=== PATIENT | female | born 1990 | race Asian ===

== ENCOUNTER 2020-11-15 18:28 | Outpatient (CLI) | payer OTHER ==
[~2020-11-15] VITALS: Ht 157.5 cm; Wt 60.0 kg
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
[2020-11-15 19:00] VITALS: BP 106/61; PULSE 77; TEMP 98.4
[2020-11-15 20:00] VITALS: BP 101/64; PULSE 80
--- NOTE | 2020-11-15 20:00 | NUR ---
Dr. Stanley on unit, reviews FHR tracing.
[2020-11-15 20:30] VITALS: BP 102/62; PULSE 75
--- NOTE | 2020-11-15 20:30 | NUR ---
Irregular contractions per toco, patient denies feeling them. SVE closed/thick/high.
[2020-11-15] MEDS ORDERED: PRENATAL TABLET PO (20:40)
--- NOTE | 2020-11-15 20:50 | NUR ---
Discharge instructions reviewed with patient. Patient discharged home in stable condition with spouse.
== END 2020-11-15 20:50 | disposition home or self-care (01) ==
LOC: LDRO 18:28 → LDR 18:50 → LDRO 20:50
DX: O9A.213 Injury, poisoning and certain other consequences of external causes complicating pregnancy, third trimester (principal); Z3A.33 33 weeks gestation of pregnancy
CPT/HCPCS: OP

== ENCOUNTER 2020-12-31 08:07 | Inpatient (IN) | payer BC ==
[~2020-12-31] VITALS: Ht 157.5 cm; Wt 62.7 kg
[~2020-12-31 08:07] MED LIST: PRENATAL TABLET PO
[2021-01-01] VITALS (39 sets, daily range): BP systolic 97–161; BP diastolic 55–80; PULSE 65–120; TEMP 97.8–98.2
--- NOTE | 2021-01-01 06:25 | NUR ---
PATIENT TO LR 6 FOR INDUCTION. PATIENT GOES BY "BLANCA", SPOUSE "LEEANNE" PRESENT. PATIENT CHANGED INTO GOWN, ON EFM, ASSESMENT COMPLETE, IV STARTED, CONSENTS SIGNED. PAITENT DENIES LEAKING OF FLUID, CONTRACTIONS OR BLEEDING.
[2021-01-01 07:38] LABS: BASO % 0.4 % (0.0-2.0); EOS # 0.2 K/mm3 (0.0-0.7); EOS % 1.7 % (0-4.0); GRAN # 7.1 K/mm3 (1.4-6.5); GRAN % 71.5 % (42.2-75.2); HEMOGLOBIN 12.2 g/dl (12.5-16.0); LYMPH # 1.5 K/mm3 (1.2-3.4); LYMPH % 15.5 % (20.0-51.0); MEAN CELL VOLUME 89 fl (80.0-100.0); MEAN CORPUSCULAR HEMOGLOBIN 30 pg (27.0-31.0); MEAN CORPUSCULAR HGB CONC 34 g/dl (33.0-37.0); MEAN PLATELET VOLUME 10.1 fl (7.4-10.4); PLATELET COUNT 186 K/mm3 (130-400); RED BLOOD COUNT 4.07 M/mm3 (4.10-5.30); REDCELL DISTRIBUTION WIDTH-CV 13.2 % (11.5-14.5)
[2021-01-01 07:39] LABS: HEMATOCRIT 36.2 % (37.0-47.0)
--- NOTE | 2021-01-01 15:38 | NUR ---
PUSHING [phone]. INTERMITTENT TRACING DURING PUSHING. AT [address] TORRES. VIABLE MALE . TO ELVIN RN AND SHELLY RN. PLACENTA SPON DELIVERED AT 1431. OXYTOCIN INFUSION 333 MLS/HR. FUNDAL MASSAGE PROVIDED. 2ND DEGREE REPAIRED BY DR TORRES, STRAIGHT CATH BY DR TORRES. ICE PACK TO PERINEUM, RECOVERY STARTED AT 1445
--- NOTE | 2021-01-01 18:30 | NUR ---
Report recieved. Ambulating in room at this time. POC reviewed and whiteboard updated. Up to restroom. Questions invited.
[2021-01-01] MEDS ORDERED: MOTRIN 800800 MG/TAB PO (18:37)
[2021-01-02] VITALS: BP 115/70; PULSE 92; TEMP 98.6
[2021-01-02 04:30] VITALS: BP 103/64; PULSE 76; TEMP 97.9
[2021-01-02 07:20] VITALS: BP 104/62; PULSE 85; TEMP 98.3
[2021-01-02 12:00] VITALS: BP 116/75; PULSE 84; TEMP 98.9
--- NOTE | 2021-01-02 12:25 | NUR ---
Initial visit; Patient indisposed, her thanked [employer] Representative for offering congratulations for the of their son and thanking them for choosing [facility].
== END 2021-01-02 16:45 | disposition home or self-care (01) | DRG 807 ==
LOC: OB 01-01 06:18 → LDR 01-01 06:18 → OB 01-01 17:08
PROVIDERS: ADMIT Obstetrics & Gynecology
PROC: 10E0XZZ Delivery of Products of Conception, External Approach (ICD-10-PCS; principal; 2021-01-01)
PROC: 0KQM0ZZ Repair Perineum Muscle, Open Approach (ICD-10-PCS; 2021-01-01)
PROC: 10907ZC Drainage of Amniotic Fluid, Therapeutic from Products of Conception, Via Natural or Artificial Opening (ICD-10-PCS; 2021-01-01)
PROC: 3E033VJ Introduction of Other Hormone into Peripheral Vein, Percutaneous Approach (ICD-10-PCS; 2021-01-01)
DX: O48.0 Post-term pregnancy (principal); Z37.0 Single live birth; Z3A.40 40 weeks gestation of pregnancy; O70.1 Second degree perineal laceration during delivery; Z23 Encounter for immunization
CPT/HCPCS: J2590; J7120